=== PATIENT | male | born 1995 | race Caucasian/White ===

== ENCOUNTER 2017-03-11 13:32 | Emergency (ER) | payer SELFPAY ==
[2017-03-11 13:50] VITALS: BP 133/71
[2017-03-11] MEDS ORDERED: DEXAMETHASONE 4 MG TABLET PO ONE (15:10)
[2017-03-11] MEDS ORDERED: BUTALB/ACETAMINOPHEN/CAFFEINE 1 TAB EACH PO ONE (15:10)
[2017-03-11] MEDS ORDERED: PENICILLIN G BENZATHINE 1.2 MILLION UNIT/2 ML DISP.SYRIN IM ONE (15:10)
[2017-03-11] MEDS ORDERED: LIDOCAINE 2% VISCOUS SOLN 20 ML UDCUP PO ONE (15:10)
--- NOTE | 2017-03-11 15:14 | ER Document Report ---
HPI - HPI Patient complains to provider of: sore throat Onset: Other - 5 days Onset/Duration: Persistent Quality of pain: Achy Pain Level: 4 Context: Patient presents complaining of sore throat for the past 5 days with frontal headache off and on. Patient denies any nausea, vomiting or diarrhea. Patient denies any cough. Patient states that he did have a fever yesterday. Associated Symptoms: Fever, Headache, Sore throat. denies: Chest pain, Earache , Vomiting Exacerbated by: Denies Relieved by: Denies Similar symptoms previously: No Recently seen / treated by doctor: No - ROS ROS below otherwise negative: Yes Systems Reviewed and Negative: Yes All other systems reviewed and negative - CONSTITUTIONAL Constitutional: REPORTS: Fever, Chills - EENT EENT: REPORTS: Sore Throat. DENIES: Ear Pain, Eye problems - NEURO Neurology: REPORTS: Headache - Frontal. DENIES: Weakness, Vision blurred, Dizzinesss / Vertigo - CARDIOVASCULAR Cardiovascular: DENIES: Chest pain - RESPIRATORY Respiratory: DENIES: Trouble Breathing, Coughing - GASTROINTESTINAL Gastrointestinal: DENIES: Abdominal Pain, Patient vomiting, Black / Bloody Stools - MUSCULOSKELETAL Musculoskeletal: DENIES: Extremity pain - DERM Skin Color: Normal Skin Problems: None Past Medical History - General Information source: Patient - Social History Smoking Status: Current Some Day Smoker Chew tobacco use (# tins/day): No Smoking Education Provided: Yes Frequency of alcohol use: Occasional Drug Abuse: None Occupation: retail Lives with: Family Family History: Reviewed & Not Pertinent Patient has suicidal ideation: No Patient has homicidal ideation: No - Medical History Medical History: Negative Renal/ Medical History: Denies: Hx Peritoneal Dialysis Surgical Hx: Negative Vertical Provider Document - CONSTITUTIONAL Agree With Documented VS: Yes Exam Limitations: No Limitations General Appearance: WD/WN, No Apparent Distress - INFECTION CONTROL TRAVEL OUTSIDE OF THE [place] IN LAST 30 DAYS: No - HEENT HEENT: Atraumatic, Normocephalic, Pharyngeal Exudate, Pharyngeal Tenderness, Pharyngeal Erythema. negative: Tympanic Membrane Red, Tympanic Membrane Bulging - NECK Neck: Lymphadenopathy-Left, Lymphadenopathy-Right Notes: No meningismus - RESPIRATORY Respiratory: Breath Sounds Normal, No Respiratory Distress, Chest Non-Tender O2 Sat by Pulse Oximetry: 99 - CARDIOVASCULAR Cardiovascular: Regular Rate, Regular Rhythm, No Murmur - BACK Back: Normal Inspection - MUSCULOSKELETAL/EXTREMETIES Musculoskeletal/Extremeties: KAVEH ALTMAN - NEURO Level of Consciousness: Awake, Alert, Appropriate Motor/Sensory: No Motor Deficit, No Sensory Deficit - DERM Integumentary: Warm, Dry, No Rash Course - Vital Signs Vital signs: Temp Pulse Resp BP Pulse Ox 98.8 F 69 18 133/71 H 99 03/11/17 13:48 03/11/17 13:48 03/11/17 13:48 03/11/17 13:48 03/11/17 13:48 Discharge - Discharge Clinical Impression: Tonsillitis, Sore throat Headache Qualifiers: Headache type: unspecified Headache chronicity pattern: acute headache Intractability: not intractable Qualified Code(s): R51 - Headache Condition: Stable Disposition: HOME, SELF-CARE Instructions: Antibiotic Shot ([facility]), Corticosteroid Medication ([facility]), Use of [id number]-[id number] Ibuprofen ([facility]), Tonsillitis ([facility]) Additional Instructions: Return immediately for any new or worsening symptoms Followup with your primary care provider, call tomorrow to make a followup appointment Prescriptions: Butalb/Acetaminophen/Caffeine [Fioricet (50-325-40 mg) Tablet] 1 - 2 tab PO Q4H #12 each Naproxen [Naprosyn 250 Nmg Tablet] 1 tab PO BID #14 tablet Forms: Return to Work Referrals: [facility] [Provider Group] - Follow up as needed [facility] [Provider Group] - Follow up as needed
== END 2017-03-11 15:54 | disposition home or self-care (01) ==
LOC: ER 13:32
DX: J03.90 Acute tonsillitis, unspecified (principal); J02.9 Acute pharyngitis, unspecified; R51 Headache; R50.9 Fever, unspecified; F17.200 Nicotine dependence, unspecified, uncomplicated
CPT/HCPCS: 99282; 96372; J3490 ×2; J0561

== ENCOUNTER 2017-08-19 19:52 | Emergency (ER) | payer BC ==
[2017-08-19] MEDS ORDERED: FAMOTIDINE INJ/PF 20 MG/2 ML SDV IV ONE (21:16)
[2017-08-19] MEDS ORDERED: ONDANSETRON HCL INJ/PF 4 MG/2 ML SDV IV ONE (21:16)
[2017-08-19] MEDS ORDERED: NORMAL SALINE 1000 ML 1,000 ML IV ONE ×2 (21:16→22:46)
--- NOTE | 2017-08-19 21:19 | ER Document Report ---
ED General - General Chief Complaint: Chest Congestion Stated Complaint: CHEST PAIN Time Seen by Provider: 08/19/17 20:49 Mode of Arrival: Ambulatory Information source: Patient Notes: 22-year-old male with no reported past medical history presents with complaint of nausea, vomiting, abdominal pain and diarrhea. Patient states symptoms started this morning. He states he has had 6 episodes of nonbilious nonbloody vomiting. Three episodes of nonbloody diarrhea. Patient's abdominal pain is located in the epigastric and RLQ. Described as aching, throbbing. He has had sick contacts with a mom with similar symptoms. He denies any fever, chills, headache. He denies recent travel, recent antibiotic use. TRAVEL OUTSIDE OF THE [place] IN LAST 30 DAYS: No - HPI Onset: This morning Onset/Duration: Gradual Quality of pain: Burning, Throbbing Severity: Mild Associated symptoms: Chest pain, Diarrhea, Nausea, Vomiting, Shortness of breath. denies: Fever Exacerbated by: Denies Relieved by: Denies Similar symptoms previously: No Recently seen / treated by doctor: No - Related Data Allergies/Adverse Reactions: erythromycin base Allergy (Verified 08/19/17 23:37) Penicillins Allergy (Verified 08/19/17 19:54) Past Medical History - General Information source: Patient - Social History Smoking Status: Current Every Day Smoker Smoking Education Provided: Yes Frequency of alcohol use: None Drug Abuse: None Lives with: Family Family History: Reviewed & Not Pertinent Patient has suicidal ideation: No Patient has homicidal ideation: No - Medical History Medical History: Negative Renal/ Medical History: Denies: Hx Peritoneal Dialysis Review of Systems - Review of Systems Notes: Patient denies fever, chills, headache, ear pain, sore throat, cough, shortness of breath, back pain, dysuria, hematuria, rash, SI/HI. Physical Exam - Vital signs Vitals: Temp Pulse Resp BP Pulse Ox 99.7 F 115 H 24 H 119/44 L 100 08/19/17 20:12 08/19/17 20:12 08/19/17 20:12 08/19/17 20:12 08/19/17 20:12 Interpretation: Normal, Tachycardic, Tachypneic. No: Febrile - Notes Notes: PHYSICAL EXAMINATION: GENERAL: Well-appearing, well-nourished and in no acute distress. HEAD: Atraumatic, normocephalic. EYES: Pupils equal round and reactive to light, extraocular movements intact, sclera anicteric, conjunctiva are normal. ENT: Nares patent, oropharynx clear without exudates. Moist mucous membranes. NECK: Normal range of motion, supple without lymphadenopathy LUNGS: Breath sounds clear to auscultation bilaterally and equal. No wheezes rales or rhonchi. HEART: Regular rate and rhythm without murmurs ABDOMEN: Soft, epigastric and RLQ abdominal tenderness with palpation, nondistended abdomen. + guarding, no rebound. No masses appreciated. + McBurney's. Musculoskeletal: Normal range of motion, no pitting or edema. No cyanosis. NEUROLOGICAL: Cranial nerves grossly intact. Normal speech, normal gait. Normal sensory, motor exams PSYCH: Normal mood, normal affect. SKIN: Warm, Dry, normal turgor, no rashes or lesions noted. Course - Re-evaluation Re-evalutation: Laboratory 08/19/17 08/19/17 21:34 21:34 WBC 11.4 H RBC 5.14 Hgb 15.7 Hct 44.2 MCV 86 MCH 30.5 MCHC 35.5 RDW 12.5 Plt Count 267 Total Counted 100 Seg Neutrophils % Not Reportable Seg Neuts % (Manual) 79 H Band Neutrophils % 8 H Lymphocytes % Not Reportable Lymphocytes % (Manual) 3 L Monocytes % Not Reportable Monocytes % (Manual) 9 Eosinophils % Not Reportable Eosinophils % (Manual) 0 Basophils % Not Reportable Basophils % (Manual) 1 Absolute Neutrophils Not Reportable Abs Neuts (Manual) 9.9 H Absolute Lymphocytes Not Reportable Abs Lymphs (Manual) 0.3 L Absolute Monocytes Not Reportable Abs Monocytes (Manual) 1.0 Absolute Eosinophils Not Reportable Absolute Eos (Manual) 0.0 Absolute Basophils Not Reportable Abs Basophils (Manual) 0.1 Large Platelets PRESENT Platelet Comment ADEQUATE Polychromasia SLIGHT Poikilocytosis SLIGHT Tear Drop Cells SLIGHT Sodium 142.8 Potassium 3.7 Chloride 104 Carbon Dioxide 22 Anion Gap 17 BUN 24 H Creatinine 0.80 Est GFR ( Amer) > 60 Est GFR (Non-Af Amer) > 60 Glucose 103 Calcium 10.0 Total Bilirubin 2.0 H Direct Bilirubin 0.3 Neonat Total Bilirubin Not Reportable Neonat Direct Bilirubin Not Reportable Neonat Indirect Bili Not Reportable AST 25 ALT 44 Alkaline Phosphatase 74 Total Protein 7.0 Albumin 4.6 Lipase 48.5 08/20/17 00:24 22-year-old male with no reported past medical history presents with complaint of nausea, vomiting, abdominal pain and diarrhea. Patient states symptoms started this morning. He states he has had 6 episodes of nonbilious nonbloody vomiting. 3 episodes of nonbloody diarrhea. Patient's abdominal pain is located in the epigastric region and RLQ. Upon arrival vitals reviewed. Patient is tachycardic, afebrile. He is actively vomiting upon exam. He does not appear toxic or dehydrated. Patient received IV fluids, Pepcid, Zofran. On reevaluation he states his nausea has resolved but he is still complaining of right lower quadrant abdominal pain. CT of the abdomen and pelvis with IV contrast was obtained and pending. CBC is significant for leukocytosis and bandemia. Lipase and LFTs are within normal limits. 08/20/17 00:38 Patient tolerating fluids prior to discharge. No evidence of appendicitis on CT. Return precautions discussed with patient and parent. 08/20/17 22:44 - Vital Signs Vital signs: Temp Pulse Resp BP Pulse Ox 101.3 F H 115 H 23 H 115/54 L 96 08/20/17 01:00 08/19/17 20:12 08/20/17 00:02 08/20/17 00:01 08/20/17 00:02 - Laboratory Result Diagrams: 08/19/17 21:34 08/19/17 21:34 Laboratory results interpreted by me: 08/19/17 08/19/17 08/20/17 21:34 21:34 00:15 WBC 11.4 H Seg Neuts % (Manual) 79 H Band Neutrophils % 8 H Lymphocytes % (Manual) 3 L Abs Neuts (Manual) 9.9 H Abs Lymphs (Manual) 0.3 L BUN 24 H Total Bilirubin 2.0 H Urine Ketones 20 H Urine Urobilinogen 4.0 H - Diagnostic Test Radiology reviewed: Pending, Image reviewed - EKG Interpretation by Me EKG shows normal: Sinus rhythm Rate: Normal Rhythm: NSR Discharge - Discharge Clinical Impression: Nausea vomiting and diarrhea, Epigastric abdominal pain, Right lower quadrant abdominal pain Condition: Good Disposition: HOME, SELF-CARE Instructions: Abdominal Pain ([facility]), Diarrhea, Nonspecific ([facility]), Observation for Appendicitis ([facility]), Vomiting ([facility]) Additional Instructions: Follow up with your physician tomorrow for further care or return to the ED IMMEDIATELY if symptoms worsen or new concerns occur. If you cannot afford to follow up with your primary care physician a list of low cost clinics have been provided at the end of your discharge papers as well. Prescriptions: Famotidine [Pepcid 40 mg Tablet] 40 mg PO DAILY #7 tablet Forms: Return to Work
--- NOTE | 2017-08-19 22:05 | RADIOLOGY REPORT (SQ) ---
EXAM DESCRIPTION: CHEST 2 VIEWS COMPLETED DATE/TIME: 08/19/2017 9:58 pm REASON FOR STUDY: chest pain COMPARISON: None. EXAM PARAMETERS: NUMBER OF VIEWS: two views TECHNIQUE: Digital Frontal and Lateral radiographic views of the chest acquired. RADIATION DOSE: NA LIMITATIONS: none FINDINGS: LUNGS AND PLEURA: No opacities, masses or pneumothorax. No pleural effusion. MEDIASTINUM AND HILAR STRUCTURES: No masses or contour abnormalities. HEART AND VASCULAR STRUCTURES: Heart normal size. No evidence for failure. BONES: No acute findings. HARDWARE: None in the chest. OTHER: No other significant finding. IMPRESSION: NO ACUTE RADIOGRAPHIC FINDING IN THE CHEST. TECHNICAL DOCUMENTATION: JOB ID: [id number] [employer]- All Rights Reserved Reading location - IP/workstation name: [email or web address]
[2017-08-19 22:16] LABS: HEMATOCRIT 44.2 % (37.9-51.0); HEMOGLOBIN 15.7 g/dL (13.5-17.0); MEAN CORPUSCULAR HEMOGLOBIN 30.5 pg (27.0-33.4); MEAN CORPUSCULAR HGB CONC 35.5 g/dL (32.0-36.0); MEAN CORPUSCULAR VOLUME 86 fl (80-97); PLATELET COUNT 267 10^3/uL (150-450); RED BLOOD COUNT 5.14 10^6/uL (4.35-5.55); RED CELL DISTRIBUTION WIDTH 12.5 % (11.5-14.0); WHITE BLOOD COUNT 11.4 10^3/uL (4.0-10.5)
[2017-08-19 22:32] LABS: ALANINE AMINOTRANSFERASE 44 U/L (21-72); ALBUMIN 4.6 g/dL (3.5-5.0); ALKALINE PHOSPHATASE 74 U/L (38-126); ANION GAP 17 (5-19); ASPARTATE AMINO TRANSFERASE 25 U/L (17-59); BILIRUBIN,DIRECT 0.3 mg/dL (0.0-0.4); BLOOD UREA NITROGEN 24 mg/dL (7-20); CARBON DIOXIDE 22 mmol/L (22-30); CHLORIDE 104 mmol/L (98-107); GLUCOSE 103 mg/dL (75-110); LIPASE 48.5 U/L (23-300); POTASSIUM 3.7 mmol/L (3.6-5.0); SODIUM 142.8 mmol/L (137-145)
[2017-08-19 22:33] LABS: ABSOLUTE LYMPHOCYTES# (MANUAL) 0.3 10^3/uL (0.5-4.7); ABSOLUTE NEUTROPHILS# (MANUAL) 9.9 10^3/uL (1.7-8.2); BAND NEUTROPHILS % (MANUAL) 8 % (3-5); BASOPHILS % (MANUAL) 1 % (0-2); EOSINOPHILS % (MANUAL) 0 % (0-6); LYMPHOCYTES % (MANUAL) 3 % (13-45); MONOCYTES % (MANUAL) 9 % (3-13); PLATELET COMMENT ADEQUATE; PLATELET LARGE PRESENT; SEGMENTED NEUTROPHILS % (MAN) 79 % (42-78); TOTAL CELLS COUNTED 100
[2017-08-19 22:35] LABS: POIKILOCYTOSIS SLIGHT; POLYCHROMASIA SLIGHT; TEAR DROP CELLS SLIGHT
[2017-08-20 00:03] VITALS: BP 115/54
--- NOTE | 2017-08-20 00:32 | RADIOLOGY REPORT (SQ) ---
EXAM DESCRIPTION: CT ABD/PELVIS WITH IV ONLY CLINICAL HISTORY: 22 years Male, rlq pain COMPARISON: None. TECHNIQUE: IV contrast. Coronal and sagittal reformat. This exam was performed according to our departmental dose-optimization program, which includes automated exposure control, adjustment of the mA and/or kV according to patient size and/or use of iterative reconstruction technique. FINDINGS: No significant free fluid. Small nonspecific air-fluid levels of the duodenum. No evidence of appendicitis. Appendix not discerned. Inferior thorax, liver, gallbladder, pancreas, spleen, adrenals, renal system, gastrointestinal tract, pelvic organs, lymphatics, vasculature, and musculoskeleton appear otherwise unremarkable. IMPRESSION: No acute findings.
[2017-08-20] MEDS ORDERED: ONDANSETRON ODT 4 MG TAB (6 TAB/ER DISP) PO PRN (00:40)
[2017-08-20] MEDS ORDERED: ACETAMINOPHEN 325 MG TABLET PO ONE (01:03)
[2017-08-20 01:25] LABS: APPEARANCE,URINE CLEAR; BILIRUBIN,URINE NEGATIVE (NEGATIVE); COLOR,URINE YELLOW; GLUCOSE, URINE NEGATIVE (NEGATIVE); KETONES,URINE 20 mg/dL (NEGATIVE); LEUKOCYTE ESTERASE,URINE NEGATIVE (NEGATIVE); NITRITE,URINE NEGATIVE (NEGATIVE); PROTEIN,URINE NEGATIVE (NEGATIVE); URINE SPECIFIC GRAVITY 1.045
--- NOTE | 2017-08-20 08:37 | EKG REPORT ---
SEVERITY:- NORMAL ECG - SINUS RHYTHM : Confirmed by: Gibson Huston MD 20-Aug-2017 08:37:17
== END 2017-08-20 01:00 | disposition home or self-care (01) ==
LOC: ER 19:52
DX: R11.2 Nausea with vomiting, unspecified (principal); R19.7 Diarrhea, unspecified; R10.13 Epigastric pain; R10.31 Right lower quadrant pain; R06.02 Shortness of breath; R07.9 Chest pain, unspecified; F17.200 Nicotine dependence, unspecified, uncomplicated; Z88.3 Allergy status to other anti-infective agents; Z88.0 Allergy status to penicillin
CPT/HCPCS: 93005; 99284; 96361; 96374; 96375; 36415; 83690; 85025; 80053; 81001; 71046; 74177; 93010; J2405; J7030; S0028